=== PATIENT | male | born 1955 | race Caucasian/White ===

== ENCOUNTER 2020-08-01 13:45 | Emergency (ER) | payer MEDICARE, BC ==
[~2020-08-01] VITALS: Ht 175.3 cm; Wt 93.2 kg
[2020-08-01] MEDS ORDERED: oxyCODONE/APAP 10/325mg tablet PO ONE (15:20)
[2020-08-01] MEDS ORDERED: ondansetron 4mg rapidly disintigrating tab PO ONE (15:20)
[2020-08-01] MEDS ORDERED: LORazepam 1 MG tablet PO ONE (15:20)
[2020-08-01] MEDS ORDERED: ketorolac trometh. 30mg/ml inj. IV ONE (16:00)
[2020-08-01] MEDS ORDERED: LIDOcaine 5% patch TP STA (16:02)
[2020-08-01] MEDS ORDERED: morphine 10mg/ml inj. IV ONE (17:05)
[2020-08-01] MEDS ORDERED: fentaNYL/PF 50MCG/1 ML 2ML syringe IV ONE (17:55)
[2020-08-01] MEDS ORDERED: GABA300C PO (18:29)
[2020-08-01] MEDS ORDERED: CYCL-1 PO (18:29)
--- NOTE | 2020-08-01 18:35 | NUR ---
PT [facility] FROM . IS DC READY. JUST GIVEN FENTANYL. BRINGING HIM CLOTHING.
[2020-08-01 18:58] VITALS: BP 156/88
== END 2020-08-01 20:00 | disposition home or self-care (01) ==
LOC: ER 13:46
DX: S39.012A Strain of muscle, fascia and tendon of lower back, initial encounter (principal); M48.061 Spinal stenosis, lumbar region without neurogenic claudication; I10 Essential (primary) hypertension; X58.XXXA Exposure to other specified factors, initial encounter; Y93.89 Activity, other specified; Y92.89 Other specified places as the place of occurrence of the external cause; Y99.8 Other external cause status
CPT/HCPCS: 72128; 72131; 96374; 96375; 99284; J1885; J2270; J3010